=== PATIENT | male | born 1950 | race Caucasian/White ===

== ENCOUNTER 2019-11-21 10:51 | Inpatient (IN) | payer MEDICARE, BC ==
[~2019-11-21] VITALS: Ht 185.4 cm; Wt 128.4 kg
[~2019-11-21 10:51] MED LIST: ALLO100T PO; ASCO500C15 PO; ATOR40TA PO; BUME2TAB7 PO; BUPR-344 PO; CALC-331 PO; CARV-50 PO; CYCL-1 PO; DONE10TA7 PO; FENO150C4 PO; HYDR-3972 PO; LISI10TA4 PO; LORA0.5T PO; MAGN400C PO; MEGA-RED PO; MELA10TA2 PO; METF-436 PO; MULT-1085 PO; PROM50TA3 PO; SPIR25TA PO; TRAM50TA2 PO; VITA150T PO
[2019-11-21] MEDS ORDERED: normal saline 500ml IV soln 1,000 ML IV ONE (12:20)
[2019-11-21 12:27] LABS: BASOPHILS # (AUTO) 0.1 X10'3 (0-0.2); BASOPHILS % (AUTO) 0.9 % (0-1); EOSINOPHILS # (AUTO) 0.3 X10'3 (0-0.9); EOSINOPHILS % (AUTO) 3.9 % (0-6); HEMATOCRIT 28.5 % (42.0-52.0); HEMOGLOBIN 9.8 g/dl (14.0-17.9); LYMPHOCYTES # (AUTO) 1.2 X10'3 (1.1-4.8); LYMPHOCYTES % (AUTO) 18.7 % (21-51); MEAN CORPUSCULAR HEMOGLOBIN 33.5 PG (27.0-31.0); MEAN CORPUSCULAR HGB CONC 34.3 g/dL (33.0-36.5); MEAN CORPUSCULAR VOLUME 97.7 FL (78-98); MEAN PLATELET VOLUME 7.3 FL (7.4-10.4); MONOCYTES # (AUTO) 0.6 X10'3 (0-0.9); MONOCYTES % (AUTO) 8.7 % (2-12); NEUTROPHILS # (AUTO) 4.4 X10'3 (1.8-7.7); NEUTROPHILS % (AUTO) 67.8 % (42-75); PLATELET COUNT 219 X10'3 (140-440); RED BLOOD COUNT 2.92 X10'6 (4.70-6.10); RED CELL DISTRIBUTION WIDTH 13.6 % (11.5-14.5); WHITE BLOOD COUNT 6.5 X10'3 (4.5-11.0)
[2019-11-21 12:43] LABS: ALANINE AMINOTRANSFERASE 35 U/L (12-78); ALBUMIN 3.7 G/DL (3.4-5.0); ALBUMIN/GLOBULIN RATIO 1.1 (1.1-1.5); ALKALINE PHOSPHATASE 46 IU/L (46-116); ANION GAP 12 (8-16); ASPARTATE AMINO TRANSFERASE 34 U/L (10-37); BILIRUBIN,TOTAL 0.4 MG/DL (0.1-1.0); BLOOD UREA NITROGEN 62 MG/DL (7-18); BUN/CREATININE RATIO 24.1 (5.4-32.0); CHLORIDE 100 MMOL/L (99-107); CREATININE 2.57 MG/DL (0.60-1.10); GLUCOSE 133 MG/DL (70-104); POTASSIUM 4.9 MMOL/L (3.5-5.1); SODIUM 135 MMOL/L (135-145); TOTAL CARBON DIOXIDE 22.9 MMOL/L (24-32); TOTAL PROTEIN 7.2 G/DL (6.4-8.2); eGFR 25 ML/MIN
[2019-11-21 13:01] LABS: PLATELET ESTIMATE NORMAL; TOTAL CELLS COUNTED 100
[2019-11-21] MEDS ORDERED: normal saline 1000ML IV soln IVB ONE (13:10)
[2019-11-21] MEDS ORDERED: LORazepam 0.5 MG tablet PO STA (13:41)
[2019-11-21 13:58] LABS: PARTIAL THROMBOPLASTIN TIME 29 SECONDS (22-32)
--- NOTE | 2019-11-21 14:16 | NUR ---
Patient sat upright to urinate and blood pressure improved significantly. Odalys Shepherd notified.
[2019-11-21 14:22] LABS: CLARITY,URINE CLEAR (Clear); COLOR,URINE YELLOW (Yellow); GLUCOSE, URINE NEGATIVE (Neg); KETONES,URINE NEGATIVE (Neg); LEUKOCYTE ESTERASE ,URINE NEGATIVE (Neg); NITRITES, URINE NEGATIVE (Neg); OCCULT BLOOD,URINE NEGATIVE (Neg); PROTEIN,URINE NEGATIVE (Neg); UROBILINOGEN,URINE 0.2 E.U/dL (0.2-1.0)
[2019-11-21 14:24] LABS: UA COLLECTION TYPE CLN CATCH MIDSTREAM
[2019-11-21] MEDS ORDERED: vancomycin/NS 1 GM ADD-VANTAGE 250 ML IV ONE (14:40)
[2019-11-21] MEDS ORDERED: magnesium hydroxide 30ml (MOM) UD suspension PO PRN (16:25)
[2019-11-21] MEDS ORDERED: mag hydrox/Alum hydrox/simeth 30ml oral suspension PO PRN (16:25)
[2019-11-21] MEDS ORDERED: ondansetron/PF 4mg/2ml inj IV PRN (16:25)
[2019-11-21] MEDS ORDERED: acetaminophen 325mg tablet PO PRN (16:25)
[2019-11-21] MEDS: HYDROcodone/acetaminophen 5mg/325mg tablet PO PRN (17:29)
[2019-11-21] MEDS ORDERED: levoFLOXACIN 750MG TABLET PO SCH (17:55)
[2019-11-21] MEDS: normal saline 1000ml 1,000 ML IV SCH (18:13)
[2019-11-21 19:05] VITALS: BP 122/75
--- NOTE | 2019-11-21 19:05 | NUR ---
PATIENT ADMITTED TO ROOM 347B FROM ER FOR CELLULITIS OF THE RIGHT FOOT. PLACED COMFORTABLE IN BED. VITAL SIGNS TAKEN AND RECORDED.
[2019-11-21] MEDS: morphine 2 MG/ML inj. syringe IV PRN (21:09)
[2019-11-21] MEDS: heparin, porcine 5000 units/ml vial SQ SCH (21:12)
[2019-11-22] VITALS: BP 112/61
[2019-11-22] MEDS: HYDROcodone/acetaminophen 5mg/325mg tablet PO PRN ×2 (00:18→07:42)
[2019-11-22] MEDS: normal saline 1000ml 1,000 ML IV SCH ×3 (03:40→22:25)
[2019-11-22 05:27] LABS: BASOPHILS % (AUTO) 0.9 % (0-1); EOSINOPHILS # (AUTO) 0.2 X10'3 (0-0.9); EOSINOPHILS % (AUTO) 5.2 % (0-6); HEMATOCRIT 26.5 % (42.0-52.0); HEMOGLOBIN 9.2 g/dl (14.0-17.9); LYMPHOCYTES % (AUTO) 22.5 % (21-51); MEAN CORPUSCULAR HEMOGLOBIN 33.7 PG (27.0-31.0); MEAN CORPUSCULAR HGB CONC 34.6 g/dL (33.0-36.5); MEAN CORPUSCULAR VOLUME 97.4 FL (78-98); MEAN PLATELET VOLUME 7.3 FL (7.4-10.4); MONOCYTES # (AUTO) 0.3 X10'3 (0-0.9); MONOCYTES % (AUTO) 7.6 % (2-12); NEUTROPHILS # (AUTO) 2.9 X10'3 (1.8-7.7); NEUTROPHILS % (AUTO) 63.8 % (42-75); PLATELET COUNT 197 X10'3 (140-440); RED BLOOD COUNT 2.73 X10'6 (4.70-6.10); RED CELL DISTRIBUTION WIDTH 13.3 % (11.5-14.5); WHITE BLOOD COUNT 4.6 X10'3 (4.5-11.0)
[2019-11-22 05:42] LABS: ALBUMIN 3.2 G/DL (3.4-5.0); ANION GAP 11 (8-16); BLOOD UREA NITROGEN 42 MG/DL (7-18); BUN/CREATININE RATIO 32.6 (5.4-32.0); CALCIUM 8.5 MG/DL (8.5-10.1); CHLORIDE 105 MMOL/L (99-107); CREATININE 1.29 MG/DL (0.60-1.10); GLUCOSE 116 MG/DL (70-104); POTASSIUM 4.3 MMOL/L (3.5-5.1); SODIUM 138 MMOL/L (135-145); TOTAL CARBON DIOXIDE 22.2 MMOL/L (24-32); eGFR 56 ML/MIN
--- NOTE | 2019-11-22 06:20 | NUR ---
Problems reprioritized. Patient report given, questions answered & plan of care reviewed with JEAN CLAUDE MARTINEZ.
--- NOTE | 2019-11-22 06:26 | NUR ---
Patient in room BAO 347B. I have received report from JOHN LOPEZ RN and had the opportunity to ask questions and assume patient care.
--- NOTE | 2019-11-22 07:00 | NUR ---
WALLET, KEYS AND SOME MEDICATIONS SENT HOME WITH , CAME TO RETRIEVE. NOTED IN BELONGINGS PART OF CHART
[2019-11-22] MEDS: heparin, porcine 5000 units/ml vial SQ SCH ×2 (07:40→19:48)
[2019-11-22 08:13] VITALS: BP 113/62
[2019-11-22] MEDS ORDERED: VANCOmycin 1250MG/NS 250ml Bag 250 ML IV SCH (08:16)
[2019-11-22] MEDS: CefTRIAXone 2gm/D5W 50ml 50 ML IV SCH (10:42)
[2019-11-22] MEDS ORDERED: HYDROcodone/acetaminophen 10/325mg tab PO PRN (10:50)
[2019-11-22] MEDS ORDERED: Melatonin 3mg tablet PO PRN (10:50)
[2019-11-22] MEDS ORDERED: LORazepam 0.5 MG tablet PO PRN (10:50)
[2019-11-22 11:31] VITALS: BP 137/77
--- NOTE | 2019-11-22 11:48 | NUR ---
Problems reprioritized. Patient report given, questions answered & plan of care reviewed with MICHELLE NICHOLAS.
[2019-11-22] MEDS: metroNIDAZOLE 500mg tablet PO SCH ×2 (12:21→21:47)
--- NOTE | 2019-11-22 12:30 | NUR ---
Patient in room BAO 347. I have received report from Therese MARTINEZ and had the opportunity to ask questions and assume patient care.
--- NOTE | 2019-11-22 12:35 | NUR ---
I have reviewed and agree with the 0800 assessment of Therese MARTINEZ
--- NOTE | 2019-11-22 12:37 | NUR ---
DM Consult: A1C 7.4 DX R foot cellulitis possible osteomyelitis per EMR this admit. Hx dementia per EMR; not appropriate for DM ed at this time. PO 100% avg carb controlled meals; double eggs WB and double proteins BIDLD added given pt wt and protein needs. Receiving MVI and vitamin B/vitamin C this admit. Will continue to monitor. Addendum: 11/22/19 at [address] Ordo[address]ez RD Amended: Links added.
[2019-11-22] MEDS ORDERED: VANCOMYCIN 1,500MG inj. 1,500 MG in normal saline 500ml IV soln 300 ML IV SCH (15:00)
[2019-11-22] MEDS ORDERED: HYDROcodone/acetaminophen 5mg/325mg tablet PO PRN (16:40)
--- NOTE | 2019-11-22 18:30 | NUR ---
Patient in room BAO 347. I have received report from Kayce MARTINEZ and had the opportunity to ask questions and assume patient care.
--- NOTE | 2019-11-22 18:37 | NUR ---
Problems reprioritized. Patient report given, questions answered & plan of care reviewed with Stephie Falk RN.
[2019-11-22] MEDS: HYDROcodone/acetaminophen 10/325mg tab PO PRN (18:51)
[2019-11-22] MEDS: carVEDilol 12.5mg tablet PO SCH (19:44)
[2019-11-22 20:00] VITALS: BP 138/83
--- NOTE | 2019-11-22 23:50 | NUR ---
Problems reprioritized. Patient report given, questions answered & plan of care reviewed with Zhou MARTINEZ.
[2019-11-23] VITALS: BP 116/51
--- NOTE | 2019-11-23 | NUR ---
Patient in room ABO 347. I have received report from ALPESH MARTINEZ and had the opportunity to ask questions and assume patient care.
[2019-11-23] MEDS: HYDROcodone/acetaminophen 10/325mg tab PO PRN ×2 (01:21→10:37)
[2019-11-23] MEDS: normal saline 1000ml 1,000 ML IV SCH (01:22)
[2019-11-23] MEDS: morphine 2 MG/ML inj. syringe IV PRN (04:42)
[2019-11-23 04:54] LABS: HEMOGLOBIN 9.9 g/dl (14.0-17.9); RED CELL DISTRIBUTION WIDTH 13.3 % (11.5-14.5)
[2019-11-23 04:57] LABS: BASOPHILS # (AUTO) 0.1 X10'3 (0-0.2); EOSINOPHILS # (AUTO) 0.2 X10'3 (0-0.9); EOSINOPHILS % (AUTO) 3.8 % (0-6); HEMATOCRIT 28.6 % (42.0-52.0); LYMPHOCYTES # (AUTO) 1.1 X10'3 (1.1-4.8); LYMPHOCYTES % (AUTO) 19.3 % (21-51); MEAN CORPUSCULAR HEMOGLOBIN 33.7 PG (27.0-31.0); MEAN CORPUSCULAR HGB CONC 34.7 g/dL (33.0-36.5); MEAN CORPUSCULAR VOLUME 97.2 FL (78-98); MEAN PLATELET VOLUME 7.6 FL (7.4-10.4); MONOCYTES # (AUTO) 0.4 X10'3 (0-0.9); NEUTROPHILS % (AUTO) 68.9 % (42-75); PLATELET COUNT 218 X10'3 (140-440); RED BLOOD COUNT 2.94 X10'6 (4.70-6.10); WHITE BLOOD COUNT 5.7 X10'3 (4.5-11.0)
[2019-11-23 05:11] LABS: ALBUMIN 3.5 G/DL (3.4-5.0); ANION GAP 9 (8-16); BLOOD UREA NITROGEN 22 MG/DL (7-18); BUN/CREATININE RATIO 23.2 (5.4-32.0); CALCIUM 9.1 MG/DL (8.5-10.1); CHLORIDE 104 MMOL/L (99-107); CREATININE 0.95 MG/DL (0.60-1.10); GLUCOSE 141 MG/DL (70-104); POTASSIUM 4.1 MMOL/L (3.5-5.1); SODIUM 138 MMOL/L (135-145); TOTAL CARBON DIOXIDE 24.8 MMOL/L (24-32); eGFR 79 ML/MIN
--- NOTE | 2019-11-23 06:30 | NUR ---
Problems reprioritized. Patient report given, questions answered & plan of care reviewed with JEAN CLAUDE MARTINEZ.
--- NOTE | 2019-11-23 06:32 | NUR ---
Patient in room BAO 347B. I have received report from JOHN LOPEZ RN and had the opportunity to ask questions and assume patient care.
[2019-11-23 07:00] VITALS: BP 121/56
[2019-11-23] MEDS: CefTRIAXone 2gm/D5W 50ml 50 ML IV SCH (07:49)
[2019-11-23] MEDS: metroNIDAZOLE 500mg tablet PO SCH ×2 (07:50→13:00)
[2019-11-23] MEDS: carVEDilol 12.5mg tablet PO SCH (07:50)
[2019-11-23] MEDS ORDERED: allopurinol 100mg tablet PO SCH (08:00)
[2019-11-23] MEDS ORDERED: atorvastatin 20mg tablet PO SCH (08:00)
[2019-11-23] MEDS ORDERED: lisinopril 10 MG tablet PO SCH (08:00)
[2019-11-23] MEDS ORDERED: magnesium oxide 400mg tablet PO SCH (08:00)
[2019-11-23] MEDS ORDERED: fenofibrate 145mg tablet PO SCH (08:00)
[2019-11-23] MEDS ORDERED: MEGA RED PO SCH (08:00)
[2019-11-23] MEDS ORDERED: buPROPion SR 150mg tablet PO SCH (08:00)
[2019-11-23] MEDS ORDERED: multivitamins, therapeutics tablet PO SCH (08:00)
[2019-11-23] MEDS ORDERED: spironolactone 25 MG tablet PO SCH (08:00)
[2019-11-23] MEDS ORDERED: calcium carbonate 500mg tablet PO SCH (08:00)
[2019-11-23] MEDS ORDERED: vitamin B comp w/Vit. C tab 1 TAB TABLET PO SCH (08:00)
--- NOTE | 2019-11-23 09:47 | NUR ---
[facility] LINE INFORMATION: REF: [id number] LOT: [id number] EXP:
[2019-11-23] MEDS: heparin, porcine 5000 units/ml vial SQ SCH (10:38)
[2019-11-23 11:00] VITALS: BP 139/65
[2019-11-23] MEDS ORDERED: METR-159 PO (11:09)
[2019-11-23] MEDS ORDERED: CEFT2VIA13 IV (11:09)
--- NOTE | 2019-11-23 13:20 | NUR ---
PATIENT STABLE AND APPROPRIATE FOR DISCHARGE, WOUND PICTURES TAKEN, IV TAKEN OUT, EDUCATION GIVEN, ALL BELONGINGS SENT WITH PATIENT, PATIENT TAKEN BY WHEEL CHAIR TO LOBBY TO AN AWAITING CAR WHERE WILL TAKE PATIENT HOME
[2019-11-23] MEDS ORDERED: VANCOMYCIN LEVEL IV ONE (19:30)
== END 2019-11-23 13:20 | disposition home IV services (08) | DRG 602 ==
LOC: ER 10:52 → ED HOLD 16:25 → SUR 3N 19:01
PROVIDERS: ADMIT Family Medicine; ATTEND Family Medicine
PROC: 02HV33Z Insertion of Infusion Device into Superior Vena Cava, Percutaneous Approach (ICD-10-PCS; principal; 2019-11-23)
PROC: B548ZZA Ultrasonography of Superior Vena Cava, Guidance (ICD-10-PCS; 2019-11-23)
DX: L03.031 Cellulitis of right toe (principal); N17.0 Acute kidney failure with tubular necrosis; M86.8X7 Other osteomyelitis, ankle and foot; E11.69 Type 2 diabetes mellitus with other specified complication; F32.9 Major depressive disorder, single episode, unspecified; I10 Essential (primary) hypertension; E78.5 Hyperlipidemia, unspecified; F03.90 Unspecified dementia, unspecified severity, without behavioral disturbance, psychotic disturbance, mood disturbance, and anxiety; Z88.5 Allergy status to narcotic agent
CPT/HCPCS: 36415; 36573; 71045; 73630; 73718; 76937; 80048; 80053; 81003; 82948; 83036; 83605; 83880; 84145; 84484; 85007; 85025; 85610; 85730; 87040; 87081; 93005; 96361; 96365; 99285; G0378; J0696; J1644; J2270; J3370; J3490; J7030; J7040

== ENCOUNTER 2019-11-24 08:15 | Day surgery (SDC) | payer MEDICARE, BC ==
[~2019-11-24 08:15] MED LIST changes: +CEFT2VIA13 IV; -CYCL-1 PO; -DONE10TA7 PO; +METR-159 PO; -PROM50TA3 PO; -TRAM50TA2 PO
[2019-11-24] MEDS ORDERED: LIDOcaine 2% 5ml jelly ONE (09:31)
== END 2019-11-24 10:29 | disposition home or self-care (01) ==
LOC: WOUND CARE 08:15
PROVIDERS: ATTEND Nurse Practitioner
DX: E11.621 Type 2 diabetes mellitus with foot ulcer (principal); L97.512 Non-pressure chronic ulcer of other part of right foot with fat layer exposed; E11.319 Type 2 diabetes mellitus with unspecified diabetic retinopathy without macular edema; E11.69 Type 2 diabetes mellitus with other specified complication; M86.8X7 Other osteomyelitis, ankle and foot; I11.0 Hypertensive heart disease with heart failure; I50.9 Heart failure, unspecified; E78.5 Hyperlipidemia, unspecified; F32.9 Major depressive disorder, single episode, unspecified; F03.90 Unspecified dementia, unspecified severity, without behavioral disturbance, psychotic disturbance, mood disturbance, and anxiety; Z88.5 Allergy status to narcotic agent
CPT/HCPCS: 36416; 82948; 97597

== ENCOUNTER → 2019-12-02 | Day surgery (SDC) | payer MEDICARE, BC ==
[~2019-12-02] MED LIST changes: +LIDOcaine 2% 5ml jelly ONE
== END | disposition home or self-care (01) ==
LOC: WOUND CARE 09:12
PROVIDERS: ATTEND Nurse Practitioner
DX: E11.621 Type 2 diabetes mellitus with foot ulcer (principal); L97.512 Non-pressure chronic ulcer of other part of right foot with fat layer exposed; L97.528 Non-pressure chronic ulcer of other part of left foot with other specified severity; E11.319 Type 2 diabetes mellitus with unspecified diabetic retinopathy without macular edema; E11.69 Type 2 diabetes mellitus with other specified complication; E66.9 Obesity, unspecified; M86.8X7 Other osteomyelitis, ankle and foot; I11.0 Hypertensive heart disease with heart failure; I50.9 Heart failure, unspecified; E78.5 Hyperlipidemia, unspecified; F32.9 Major depressive disorder, single episode, unspecified; F03.90 Unspecified dementia, unspecified severity, without behavioral disturbance, psychotic disturbance, mood disturbance, and anxiety; Z68.36 Body mass index [BMI] 36.0-36.9, adult; Z87.891 Personal history of nicotine dependence
CPT/HCPCS: 36416; 82948; 97597

== ENCOUNTER 2019-12-09 13:50 | Day surgery (SDC) | payer MEDICARE, BC ==
[~2019-12-09 13:50] MED LIST changes: -LIDOcaine 2% 5ml jelly ONE
[2019-12-09] MEDS ORDERED: LIDOcaine 2% 5ml jelly ONE (14:05)
== END 2019-12-09 14:50 | disposition home or self-care (01) ==
LOC: WOUND CARE 13:50
PROVIDERS: ATTEND Nurse Practitioner
DX: E11.621 Type 2 diabetes mellitus with foot ulcer (principal); L97.512 Non-pressure chronic ulcer of other part of right foot with fat layer exposed; L97.528 Non-pressure chronic ulcer of other part of left foot with other specified severity; E11.319 Type 2 diabetes mellitus with unspecified diabetic retinopathy without macular edema; E11.69 Type 2 diabetes mellitus with other specified complication; E66.9 Obesity, unspecified; M86.8X7 Other osteomyelitis, ankle and foot; I11.0 Hypertensive heart disease with heart failure; I50.9 Heart failure, unspecified; E78.5 Hyperlipidemia, unspecified; F32.9 Major depressive disorder, single episode, unspecified; F03.90 Unspecified dementia, unspecified severity, without behavioral disturbance, psychotic disturbance, mood disturbance, and anxiety; Z68.36 Body mass index [BMI] 36.0-36.9, adult; Z87.891 Personal history of nicotine dependence
CPT/HCPCS: 36416; 82948; 97597

== ENCOUNTER 2019-12-16 09:48 | Day surgery (SDC) | payer MEDICARE, BC ==
[2019-12-16] MEDS ORDERED: LIDOcaine 2% 5ml jelly ONE (10:03)
== END 2019-12-16 11:15 | disposition home or self-care (01) ==
LOC: WOUND CARE 09:48
PROVIDERS: ATTEND Nurse Practitioner
DX: E11.621 Type 2 diabetes mellitus with foot ulcer (principal); L97.512 Non-pressure chronic ulcer of other part of right foot with fat layer exposed; L97.521 Non-pressure chronic ulcer of other part of left foot limited to breakdown of skin; E11.319 Type 2 diabetes mellitus with unspecified diabetic retinopathy without macular edema; E11.69 Type 2 diabetes mellitus with other specified complication; E66.9 Obesity, unspecified; M86.8X7 Other osteomyelitis, ankle and foot; I11.0 Hypertensive heart disease with heart failure; I50.9 Heart failure, unspecified; E78.5 Hyperlipidemia, unspecified; F32.9 Major depressive disorder, single episode, unspecified; F03.90 Unspecified dementia, unspecified severity, without behavioral disturbance, psychotic disturbance, mood disturbance, and anxiety; Z68.36 Body mass index [BMI] 36.0-36.9, adult; Z87.891 Personal history of nicotine dependence
CPT/HCPCS: 36416; 82948; G0463

== ENCOUNTER 2019-12-23 13:45 | Day surgery (SDC) | payer MEDICARE, BC ==
[~2019-12-23 13:45] MED LIST changes: -ASCO500C15 PO; +ASCO500C18 PO
== END 2019-12-23 14:34 | disposition home or self-care (01) ==
LOC: WOUND CARE 13:45
PROVIDERS: ATTEND Nurse Practitioner
DX: E11.621 Type 2 diabetes mellitus with foot ulcer (principal); L97.512 Non-pressure chronic ulcer of other part of right foot with fat layer exposed; E11.319 Type 2 diabetes mellitus with unspecified diabetic retinopathy without macular edema; E11.69 Type 2 diabetes mellitus with other specified complication; M86.8X7 Other osteomyelitis, ankle and foot; E66.9 Obesity, unspecified; I11.0 Hypertensive heart disease with heart failure; I50.9 Heart failure, unspecified; E78.5 Hyperlipidemia, unspecified; F32.9 Major depressive disorder, single episode, unspecified; F03.90 Unspecified dementia, unspecified severity, without behavioral disturbance, psychotic disturbance, mood disturbance, and anxiety; Z68.36 Body mass index [BMI] 36.0-36.9, adult; Z87.891 Personal history of nicotine dependence
CPT/HCPCS: 36416; 82948; 97597

== ENCOUNTER 2019-12-30 08:13 | Day surgery (SDC) | payer MEDICARE, BC ==
[2019-12-30] MEDS ORDERED: LIDOcaine 2% 5ml jelly ONE (09:42)
== END 2019-12-30 10:29 | disposition home or self-care (01) ==
LOC: WOUND CARE 08:13
PROVIDERS: ATTEND Nurse Practitioner
DX: E11.621 Type 2 diabetes mellitus with foot ulcer (principal); L97.512 Non-pressure chronic ulcer of other part of right foot with fat layer exposed; E11.319 Type 2 diabetes mellitus with unspecified diabetic retinopathy without macular edema; E11.65 Type 2 diabetes mellitus with hyperglycemia; E11.40 Type 2 diabetes mellitus with diabetic neuropathy, unspecified; E11.69 Type 2 diabetes mellitus with other specified complication; M86.8X7 Other osteomyelitis, ankle and foot; E66.9 Obesity, unspecified; I11.0 Hypertensive heart disease with heart failure; I50.9 Heart failure, unspecified; E78.5 Hyperlipidemia, unspecified; F32.9 Major depressive disorder, single episode, unspecified; F03.90 Unspecified dementia, unspecified severity, without behavioral disturbance, psychotic disturbance, mood disturbance, and anxiety; Z68.36 Body mass index [BMI] 36.0-36.9, adult; Z87.891 Personal history of nicotine dependence
CPT/HCPCS: 97597

== ENCOUNTER 2020-01-06 09:43 | Outpatient (CLI) | payer MEDICARE, BC ==
[~2020-01-06 09:43] MED LIST changes: -CEFT2VIA13 IV; -METR-159 PO
[2020-01-06] MEDS ORDERED: LIDOcaine 2% 5ml jelly ONE (10:03)
[2020-01-06] MEDS ORDERED: hydrocortisone 1% cream 28gm TP ONE (14:32)
== END 2020-01-06 10:35 | disposition home or self-care (01) ==
LOC: WOUND CARE 09:43
PROVIDERS: ATTEND Nurse Practitioner
DX: E11.621 Type 2 diabetes mellitus with foot ulcer (principal); L97.512 Non-pressure chronic ulcer of other part of right foot with fat layer exposed; E11.319 Type 2 diabetes mellitus with unspecified diabetic retinopathy without macular edema; E11.69 Type 2 diabetes mellitus with other specified complication; M86.8X7 Other osteomyelitis, ankle and foot; E66.9 Obesity, unspecified; I11.0 Hypertensive heart disease with heart failure; I50.9 Heart failure, unspecified; E78.5 Hyperlipidemia, unspecified; F32.9 Major depressive disorder, single episode, unspecified; F03.90 Unspecified dementia, unspecified severity, without behavioral disturbance, psychotic disturbance, mood disturbance, and anxiety; Z68.36 Body mass index [BMI] 36.0-36.9, adult; Z87.891 Personal history of nicotine dependence
CPT/HCPCS: 97597

== ENCOUNTER 2020-01-13 09:46 | Outpatient (CLI) | payer MEDICARE, BC | END 2020-01-13 23:59 | disposition home or self-care (01) | LOC: WOUND CARE 09:46 | PROVIDERS: ATTEND Nurse Practitioner | DX: E11.621 Type 2 diabetes mellitus with foot ulcer (principal); L97.512 Non-pressure chronic ulcer of other part of right foot with fat layer exposed; E11.319 Type 2 diabetes mellitus with unspecified diabetic retinopathy without macular edema; E11.69 Type 2 diabetes mellitus with other specified complication; M86.8X7 Other osteomyelitis, ankle and foot; E66.9 Obesity, unspecified; I11.0 Hypertensive heart disease with heart failure; I50.9 Heart failure, unspecified; E78.5 Hyperlipidemia, unspecified; F32.9 Major depressive disorder, single episode, unspecified; F03.90 Unspecified dementia, unspecified severity, without behavioral disturbance, psychotic disturbance, mood disturbance, and anxiety; Z68.36 Body mass index [BMI] 36.0-36.9, adult; Z87.891 Personal history of nicotine dependence | CPT/HCPCS: 11042; 36416; 82948; 97597 ==

== ENCOUNTER 2020-01-20 13:15 | Outpatient (CLI) | payer MEDICARE, BC ==
[2020-01-20] MEDS ORDERED: LIDOcaine 2% 5ml jelly ONE (13:47)
== END 2020-01-20 23:59 | disposition home or self-care (01) ==
LOC: WOUND CARE 13:15
PROVIDERS: ATTEND Nurse Practitioner
DX: E11.621 Type 2 diabetes mellitus with foot ulcer (principal); L97.512 Non-pressure chronic ulcer of other part of right foot with fat layer exposed; L97.521 Non-pressure chronic ulcer of other part of left foot limited to breakdown of skin; E11.319 Type 2 diabetes mellitus with unspecified diabetic retinopathy without macular edema; M86.8X7 Other osteomyelitis, ankle and foot; E66.9 Obesity, unspecified; I11.0 Hypertensive heart disease with heart failure; I50.9 Heart failure, unspecified; E78.5 Hyperlipidemia, unspecified; F32.9 Major depressive disorder, single episode, unspecified; Z68.36 Body mass index [BMI] 36.0-36.9, adult; Z87.891 Personal history of nicotine dependence
CPT/HCPCS: 36416; 82948; 97597

== ENCOUNTER 2020-01-27 13:06 | Outpatient (CLI) | payer MEDICARE, BC ==
[2020-01-27] MEDS ORDERED: LIDOcaine 2% 5ml jelly ONE (13:24)
== END 2020-01-27 23:59 | disposition home or self-care (01) ==
LOC: WOUND CARE 13:06
PROVIDERS: ATTEND Nurse Practitioner
DX: E11.621 Type 2 diabetes mellitus with foot ulcer (principal); L97.512 Non-pressure chronic ulcer of other part of right foot with fat layer exposed; E11.319 Type 2 diabetes mellitus with unspecified diabetic retinopathy without macular edema; E11.65 Type 2 diabetes mellitus with hyperglycemia; E11.69 Type 2 diabetes mellitus with other specified complication; M86.8X7 Other osteomyelitis, ankle and foot; E11.40 Type 2 diabetes mellitus with diabetic neuropathy, unspecified; M10.9 Gout, unspecified; E66.9 Obesity, unspecified; I11.0 Hypertensive heart disease with heart failure; I50.9 Heart failure, unspecified; E78.5 Hyperlipidemia, unspecified; M19.90 Unspecified osteoarthritis, unspecified site; F32.9 Major depressive disorder, single episode, unspecified; F41.9 Anxiety disorder, unspecified; F03.90 Unspecified dementia, unspecified severity, without behavioral disturbance, psychotic disturbance, mood disturbance, and anxiety; F40.240 Claustrophobia; Z68.36 Body mass index [BMI] 36.0-36.9, adult; Z87.891 Personal history of nicotine dependence
CPT/HCPCS: 97597

== ENCOUNTER 2020-02-03 14:00 | Outpatient (CLI) | payer MEDICARE, BC ==
[2020-02-03] MEDS ORDERED: LIDOcaine 2% 5ml jelly ONE (14:38)
== END 2020-02-03 23:59 | disposition home or self-care (01) ==
LOC: WOUND CARE 14:00
PROVIDERS: ATTEND Nurse Practitioner
DX: E11.621 Type 2 diabetes mellitus with foot ulcer (principal); L97.512 Non-pressure chronic ulcer of other part of right foot with fat layer exposed; E11.319 Type 2 diabetes mellitus with unspecified diabetic retinopathy without macular edema; E11.65 Type 2 diabetes mellitus with hyperglycemia; E11.69 Type 2 diabetes mellitus with other specified complication; M86.8X7 Other osteomyelitis, ankle and foot; E11.40 Type 2 diabetes mellitus with diabetic neuropathy, unspecified; M10.9 Gout, unspecified; E66.9 Obesity, unspecified; I11.0 Hypertensive heart disease with heart failure; I50.9 Heart failure, unspecified; E78.5 Hyperlipidemia, unspecified; M19.90 Unspecified osteoarthritis, unspecified site; R41.3 Other amnesia; F32.9 Major depressive disorder, single episode, unspecified; F41.9 Anxiety disorder, unspecified; F03.90 Unspecified dementia, unspecified severity, without behavioral disturbance, psychotic disturbance, mood disturbance, and anxiety; F40.240 Claustrophobia; Z68.36 Body mass index [BMI] 36.0-36.9, adult; Z87.891 Personal history of nicotine dependence
CPT/HCPCS: 82948; G0463

== ENCOUNTER 2020-02-10 14:00 | Outpatient (CLI) | payer MEDICARE, BC ==
[2020-02-10] MEDS ORDERED: LIDOcaine 2% 5ml jelly ONE (14:55)
== END 2020-02-10 23:59 | disposition home or self-care (01) ==
LOC: EDSTATUS 14:00 → WOUND CARE 14:00
PROVIDERS: ATTEND Nurse Practitioner
DX: E11.621 Type 2 diabetes mellitus with foot ulcer (principal); L97.512 Non-pressure chronic ulcer of other part of right foot with fat layer exposed; E11.319 Type 2 diabetes mellitus with unspecified diabetic retinopathy without macular edema; E11.65 Type 2 diabetes mellitus with hyperglycemia; E11.69 Type 2 diabetes mellitus with other specified complication; M86.8X7 Other osteomyelitis, ankle and foot; E11.40 Type 2 diabetes mellitus with diabetic neuropathy, unspecified; M10.9 Gout, unspecified; E66.9 Obesity, unspecified; I11.0 Hypertensive heart disease with heart failure; I50.9 Heart failure, unspecified; E78.5 Hyperlipidemia, unspecified; M19.90 Unspecified osteoarthritis, unspecified site; F32.9 Major depressive disorder, single episode, unspecified; F41.9 Anxiety disorder, unspecified; F03.90 Unspecified dementia, unspecified severity, without behavioral disturbance, psychotic disturbance, mood disturbance, and anxiety; F40.240 Claustrophobia; Z68.36 Body mass index [BMI] 36.0-36.9, adult; Z87.891 Personal history of nicotine dependence
CPT/HCPCS: 36416; 82948; 97597

== ENCOUNTER 2020-02-15 14:09 | Outpatient (CLI) | payer MEDICARE, BC ==
[2020-02-15] MEDS ORDERED: LIDOcaine 2% 5ml jelly ONE (14:30)
== END 2020-02-15 23:59 | disposition home or self-care (01) ==
LOC: WOUND CARE 14:09
PROVIDERS: ATTEND Nurse Practitioner
DX: E11.621 Type 2 diabetes mellitus with foot ulcer (principal); L97.512 Non-pressure chronic ulcer of other part of right foot with fat layer exposed; E11.319 Type 2 diabetes mellitus with unspecified diabetic retinopathy without macular edema; E11.65 Type 2 diabetes mellitus with hyperglycemia; E11.69 Type 2 diabetes mellitus with other specified complication; M86.8X7 Other osteomyelitis, ankle and foot; E11.40 Type 2 diabetes mellitus with diabetic neuropathy, unspecified; M10.9 Gout, unspecified; E66.9 Obesity, unspecified; I11.0 Hypertensive heart disease with heart failure; I50.9 Heart failure, unspecified; E78.5 Hyperlipidemia, unspecified; M19.90 Unspecified osteoarthritis, unspecified site; F32.9 Major depressive disorder, single episode, unspecified; F41.9 Anxiety disorder, unspecified; F03.90 Unspecified dementia, unspecified severity, without behavioral disturbance, psychotic disturbance, mood disturbance, and anxiety; F40.240 Claustrophobia; Z68.36 Body mass index [BMI] 36.0-36.9, adult; Z87.891 Personal history of nicotine dependence
CPT/HCPCS: 36416; 82948; 97597

== ENCOUNTER 2020-02-23 13:38 | Outpatient (CLI) | payer MEDICARE, BC ==
[~2020-02-23 13:38] MED LIST changes: +LIDOcaine 2% 5ml jelly ONE
[2020-02-23] MEDS ORDERED: LIDOcaine 2% 5ml jelly ONE (14:04)
== END 2020-02-23 23:59 | disposition home or self-care (01) ==
LOC: WOUND CARE 13:38
PROVIDERS: ATTEND Nurse Practitioner
DX: E11.621 Type 2 diabetes mellitus with foot ulcer (principal); L97.512 Non-pressure chronic ulcer of other part of right foot with fat layer exposed; E11.319 Type 2 diabetes mellitus with unspecified diabetic retinopathy without macular edema; E11.65 Type 2 diabetes mellitus with hyperglycemia; E11.69 Type 2 diabetes mellitus with other specified complication; M86.8X7 Other osteomyelitis, ankle and foot; E11.40 Type 2 diabetes mellitus with diabetic neuropathy, unspecified; M10.9 Gout, unspecified; E66.9 Obesity, unspecified; I11.0 Hypertensive heart disease with heart failure; I50.9 Heart failure, unspecified; E78.5 Hyperlipidemia, unspecified; M19.90 Unspecified osteoarthritis, unspecified site; F32.9 Major depressive disorder, single episode, unspecified; F41.9 Anxiety disorder, unspecified; F03.90 Unspecified dementia, unspecified severity, without behavioral disturbance, psychotic disturbance, mood disturbance, and anxiety; F40.240 Claustrophobia; Z68.36 Body mass index [BMI] 36.0-36.9, adult; Z87.891 Personal history of nicotine dependence
CPT/HCPCS: 11042; 97597

== ENCOUNTER 2020-03-01 13:22 | Outpatient (CLI) | payer MEDICARE, BC ==
[~2020-03-01 13:22] MED LIST changes: -LIDOcaine 2% 5ml jelly ONE
[2020-03-01] MEDS ORDERED: LIDOcaine 2% 5ml jelly ONE (13:52)
== END 2020-03-01 23:59 | disposition home or self-care (01) ==
LOC: WOUND CARE 13:22
PROVIDERS: ATTEND Nurse Practitioner
DX: E11.621 Type 2 diabetes mellitus with foot ulcer (principal); L97.512 Non-pressure chronic ulcer of other part of right foot with fat layer exposed; E11.319 Type 2 diabetes mellitus with unspecified diabetic retinopathy without macular edema; E11.65 Type 2 diabetes mellitus with hyperglycemia; E11.69 Type 2 diabetes mellitus with other specified complication; M86.8X7 Other osteomyelitis, ankle and foot; E11.40 Type 2 diabetes mellitus with diabetic neuropathy, unspecified; M10.9 Gout, unspecified; E66.9 Obesity, unspecified; I11.0 Hypertensive heart disease with heart failure; I50.9 Heart failure, unspecified; E78.5 Hyperlipidemia, unspecified; M19.90 Unspecified osteoarthritis, unspecified site; F32.9 Major depressive disorder, single episode, unspecified; F41.9 Anxiety disorder, unspecified; F03.90 Unspecified dementia, unspecified severity, without behavioral disturbance, psychotic disturbance, mood disturbance, and anxiety; F40.240 Claustrophobia; Z68.36 Body mass index [BMI] 36.0-36.9, adult; Z87.891 Personal history of nicotine dependence
CPT/HCPCS: 82948; 97597

== ENCOUNTER 2020-03-08 13:17 | Outpatient (CLI) | payer MEDICARE, BC ==
[2020-03-08] MEDS ORDERED: LIDOcaine 2% 5ml jelly ONE (13:39)
== END 2020-03-08 23:59 | disposition home or self-care (01) ==
LOC: WOUND CARE 13:17
PROVIDERS: ATTEND Nurse Practitioner
DX: E11.621 Type 2 diabetes mellitus with foot ulcer (principal); L97.512 Non-pressure chronic ulcer of other part of right foot with fat layer exposed; E11.319 Type 2 diabetes mellitus with unspecified diabetic retinopathy without macular edema; E11.65 Type 2 diabetes mellitus with hyperglycemia; E11.69 Type 2 diabetes mellitus with other specified complication; M86.8X7 Other osteomyelitis, ankle and foot; E11.40 Type 2 diabetes mellitus with diabetic neuropathy, unspecified; M10.9 Gout, unspecified; E66.9 Obesity, unspecified; I11.0 Hypertensive heart disease with heart failure; I50.9 Heart failure, unspecified; E78.5 Hyperlipidemia, unspecified; R41.3 Other amnesia; M19.90 Unspecified osteoarthritis, unspecified site; F32.9 Major depressive disorder, single episode, unspecified; F41.9 Anxiety disorder, unspecified; F03.90 Unspecified dementia, unspecified severity, without behavioral disturbance, psychotic disturbance, mood disturbance, and anxiety; F40.240 Claustrophobia; Z68.36 Body mass index [BMI] 36.0-36.9, adult; Z87.891 Personal history of nicotine dependence
CPT/HCPCS: 11042; 36416; 82948

== ENCOUNTER 2020-03-15 13:39 | Outpatient (CLI) | payer MEDICARE, BC ==
[2020-03-15] MEDS ORDERED: LIDOcaine 2% 5ml jelly ONE (14:02)
== END 2020-03-15 23:59 | disposition home or self-care (01) ==
LOC: WOUND CARE 13:39
PROVIDERS: ATTEND Nurse Practitioner
DX: E11.621 Type 2 diabetes mellitus with foot ulcer (principal); L97.512 Non-pressure chronic ulcer of other part of right foot with fat layer exposed; E11.319 Type 2 diabetes mellitus with unspecified diabetic retinopathy without macular edema; E11.65 Type 2 diabetes mellitus with hyperglycemia; E11.69 Type 2 diabetes mellitus with other specified complication; M86.8X7 Other osteomyelitis, ankle and foot; E11.40 Type 2 diabetes mellitus with diabetic neuropathy, unspecified; M10.9 Gout, unspecified; E66.9 Obesity, unspecified; I11.0 Hypertensive heart disease with heart failure; I50.9 Heart failure, unspecified; E78.5 Hyperlipidemia, unspecified; R41.3 Other amnesia; M19.90 Unspecified osteoarthritis, unspecified site; F32.9 Major depressive disorder, single episode, unspecified; F41.9 Anxiety disorder, unspecified; F03.90 Unspecified dementia, unspecified severity, without behavioral disturbance, psychotic disturbance, mood disturbance, and anxiety; F40.240 Claustrophobia; Z68.36 Body mass index [BMI] 36.0-36.9, adult; Z87.891 Personal history of nicotine dependence
CPT/HCPCS: 82948; G0463; 29581

== ENCOUNTER → 2020-03-22 | Outpatient (CLI) | payer MEDICARE, BC ==
[~2020-03-22] MED LIST changes: +LIDOcaine 2% 5ml jelly ONE
== END | disposition home or self-care (01) ==
LOC: WOUND CARE 13:23
PROVIDERS: ATTEND Nurse Practitioner Family
DX: E11.621 Type 2 diabetes mellitus with foot ulcer (principal); L97.512 Non-pressure chronic ulcer of other part of right foot with fat layer exposed; E11.319 Type 2 diabetes mellitus with unspecified diabetic retinopathy without macular edema; E11.65 Type 2 diabetes mellitus with hyperglycemia; E11.69 Type 2 diabetes mellitus with other specified complication; M86.8X7 Other osteomyelitis, ankle and foot; E11.40 Type 2 diabetes mellitus with diabetic neuropathy, unspecified; M10.9 Gout, unspecified; E66.9 Obesity, unspecified; I11.0 Hypertensive heart disease with heart failure; I50.9 Heart failure, unspecified; E78.5 Hyperlipidemia, unspecified; R41.3 Other amnesia; M19.90 Unspecified osteoarthritis, unspecified site; F32.9 Major depressive disorder, single episode, unspecified; F41.9 Anxiety disorder, unspecified; F03.90 Unspecified dementia, unspecified severity, without behavioral disturbance, psychotic disturbance, mood disturbance, and anxiety; F40.240 Claustrophobia; Z68.36 Body mass index [BMI] 36.0-36.9, adult; Z87.891 Personal history of nicotine dependence
CPT/HCPCS: 97597

== ENCOUNTER 2020-03-29 12:45 | Outpatient (CLI) | payer MEDICARE, BC ==
[~2020-03-29 12:45] MED LIST changes: -LIDOcaine 2% 5ml jelly ONE
[2020-03-29] MEDS ORDERED: LIDOcaine 2% 5ml jelly ONE (13:09)
== END 2020-03-29 23:59 | disposition home or self-care (01) ==
LOC: WOUND CARE 12:45
PROVIDERS: ATTEND Nurse Practitioner
DX: E11.621 Type 2 diabetes mellitus with foot ulcer (principal); L97.512 Non-pressure chronic ulcer of other part of right foot with fat layer exposed; E11.319 Type 2 diabetes mellitus with unspecified diabetic retinopathy without macular edema; E11.65 Type 2 diabetes mellitus with hyperglycemia; E11.69 Type 2 diabetes mellitus with other specified complication; M86.8X7 Other osteomyelitis, ankle and foot; E11.40 Type 2 diabetes mellitus with diabetic neuropathy, unspecified; M10.9 Gout, unspecified; E66.9 Obesity, unspecified; I11.0 Hypertensive heart disease with heart failure; I50.9 Heart failure, unspecified; E78.5 Hyperlipidemia, unspecified; R41.3 Other amnesia; M19.90 Unspecified osteoarthritis, unspecified site; F32.9 Major depressive disorder, single episode, unspecified; F41.9 Anxiety disorder, unspecified; F03.90 Unspecified dementia, unspecified severity, without behavioral disturbance, psychotic disturbance, mood disturbance, and anxiety; F40.240 Claustrophobia; Z68.36 Body mass index [BMI] 36.0-36.9, adult; Z87.891 Personal history of nicotine dependence
CPT/HCPCS: G0463

== ENCOUNTER 2022-01-07 17:07 | Emergency (ER) | payer MEDICARE, BC ==
[~2022-01-07] VITALS: Ht 185.4 cm; Wt 121.8 kg
[~2022-01-07 17:07] MED LIST changes: +LISI10TA27 PO; -LISI10TA4 PO
[2022-01-07 17:14] VITALS: BP 141/67
[2022-01-07] MEDS ORDERED: PRED20TA PO ×2 (18:43)
[2022-01-07] MEDS ORDERED: predniSONE 20 mg tablet PO ONE (18:45)
== END 2022-01-07 19:09 | disposition home or self-care (01) ==
LOC: ER 17:08
DX: E11.42 Type 2 diabetes mellitus with diabetic polyneuropathy (principal); Z88.8 Allergy status to other drugs, medicaments and biological substances; Z79.899 Other long term (current) drug therapy
CPT/HCPCS: 99281; 99282

== ENCOUNTER 2022-04-25 06:13 | Day surgery (SDC) | payer MEDICARE, BC ==
[2022-04-24 11:33] LABS: BASOPHILS % (AUTO) 0.5 % (0-1); EOSINOPHILS # (AUTO) 0.3 X10'3 (0-0.9); EOSINOPHILS % (AUTO) 4.9 % (0-6); HEMATOCRIT 35.1 % (42.0-52.0); LYMPHOCYTES # (AUTO) 1.3 X10'3 (1.1-4.8); LYMPHOCYTES % (AUTO) 18.7 % (21-51); MEAN CORPUSCULAR HEMOGLOBIN 35.1 PG (27.0-31.0); MEAN CORPUSCULAR HGB CONC 34.1 g/dL (33.0-36.5); MEAN CORPUSCULAR VOLUME 102.9 FL (78-98); MEAN PLATELET VOLUME 8.3 FL (7.4-10.4); MONOCYTES # (AUTO) 0.6 X10'3 (0-0.9); MONOCYTES % (AUTO) 7.9 % (2-12); NEUTROPHILS # (AUTO) 4.8 X10'3 (1.8-7.7); PLATELET COUNT 190 X10'3 (140-440); RED BLOOD COUNT 3.41 X10'6 (4.70-6.10); RED CELL DISTRIBUTION WIDTH 12.3 % (11.5-14.5)
[2022-04-24 11:47] LABS: ALBUMIN 4.2 G/DL (3.4-5.0); ANION GAP 6 (8-16); BLOOD UREA NITROGEN 39 MG/DL (7-18); BUN/CREATININE RATIO 30.2 (5.4-32.0); CALCIUM 9.7 MG/DL (8.5-10.1); CHLORIDE 101 MMOL/L (99-107); CREATININE 1.29 MG/DL (0.60-1.10); GLUCOSE 156 MG/DL (70-104); POTASSIUM 4.9 MMOL/L (3.5-5.1); SODIUM 134 MMOL/L (135-145); TOTAL CARBON DIOXIDE 26.7 MMOL/L (24-32); eGFR 55 ML/MIN
[2022-04-24 11:51] LABS: APTT 25 SECONDS (22-32)
[~2022-04-25] VITALS: Ht 185.4 cm; Wt 130.8 kg
[2022-04-25] VITALS (11 sets, daily range): BP systolic 100–156; BP diastolic 51–88
[2022-04-25] MEDS ORDERED: diphenhydrAMINE 25mg capsule PO PRN (06:35)
[2022-04-25] MEDS ORDERED: LORazepam 0.5 MG tablet PO PRN (06:35)
[2022-04-25] MEDS ORDERED: normal saline 1,000 ML IV SCH (06:35)
[2022-04-25] MEDS ORDERED: SODIUM BICARB 150mEq/D5W 1L 1,000 ML IV ONE (07:10)
[2022-04-25] MEDS ORDERED: TRAZ-251 PO (07:13)
[2022-04-25] MEDS ORDERED: VALA100031 PO (07:13)
[2022-04-25] MEDS ORDERED: ROPI0.5T4 PO (07:13)
[2022-04-25] MEDS ORDERED: [UNRECOGNIZED DRUG - OTHER] (07:13)
[2022-04-25] MEDS ORDERED: tumeric PO (07:14)
[2022-04-25] MEDS ORDERED: [UNRECOGNIZED DRUG - OTHER] (07:15)
[2022-04-25] MEDS ORDERED: ZINC (07:15)
[2022-04-25] MEDS ORDERED: ALPH600C3 PO (07:16)
[2022-04-25] MEDS ORDERED: BENF150C (07:17)
[2022-04-25] MEDS ORDERED: FERR-39 PO (07:18)
[2022-04-25] MEDS ORDERED: CITI500C (07:19)
[2022-04-25] MEDS ORDERED: KRIL1CAP21 PO (07:20)
[2022-04-25] MEDS ORDERED: IBUP-2417 (07:21)
[2022-04-25] MEDS ORDERED: LIDOcaine 1% (10mg/ml) 2ml vial ONE (07:28)
[2022-04-25] MEDS ORDERED: verapamil 2.5 mg/ml inj IV ONE (07:28)
[2022-04-25] MEDS ORDERED: heparin 1,000unit/ml 10ml vial 10 ML ONE (07:28)
[2022-04-25] MEDS ORDERED: fentaNYL/PF 50MCG/1 ML 2ML syringe ONE (07:28)
[2022-04-25] MEDS ORDERED: midazolam 1 mg/ML 2ml injection ONE (07:28)
[2022-04-25] MEDS ORDERED: nitroGLYCERIN-Tridil 50MG/D5W 250 ML IV ONE (07:28)
[2022-04-25] MEDS ORDERED: iohexol 350MG/ML 100ml bottle IV ONE (07:29)
[2022-04-25] MEDS: acetylcysteine 200 MG/ml 4ml vial PO PRN ×2 (07:31→14:33)
[2022-04-25] MEDS ORDERED: iohexol 350 MG/ML 50ML vial IV ONE (08:40)
[2022-04-25] MEDS ORDERED: HYDROcodone/acetaminophen 10/325mg tab PO PRN (09:45)
[2022-04-25] MEDS ORDERED: HYDROcodone/acetaminophen 5mg/325mg tablet PO PRN (09:45)
--- NOTE | 2022-04-25 13:59 | NUR ---
report given to MICHELLE Brand
[2022-04-29 06:49] LABS: ISTAT HGB ART 11.9 g/dl (14.0-17.9); ISTAT Hct ART 35 %PCV (42-52); ISTAT O2 SATURATION ARTERIAL 97 % (95-98); ISTAT SOURCE BLNK
[2022-04-29 06:50] LABS: ISTAT Hct MIX 29 %PCV (42-52); ISTAT O2 SATURATION MIX VENOUS 70 % (60-80); ISTAT SOURCE BLNK
== END 2022-04-25 15:05 | disposition home or self-care (01) ==
LOC: SSTAY O 06:13
PROVIDERS: ATTEND Internal Medicine Cardiovascular Disease
DX: I25.10 Atherosclerotic heart disease of native coronary artery without angina pectoris (principal); I08.0 Rheumatic disorders of both mitral and aortic valves; I11.0 Hypertensive heart disease with heart failure; I50.32 Chronic diastolic (congestive) heart failure; E78.5 Hyperlipidemia, unspecified; E66.01 Morbid (severe) obesity due to excess calories; Z68.36 Body mass index [BMI] 36.0-36.9, adult; I27.20 Pulmonary hypertension, unspecified; E11.9 Type 2 diabetes mellitus without complications; I42.8 Other cardiomyopathies; G47.33 Obstructive sleep apnea (adult) (pediatric); G47.31 Primary central sleep apnea; I47.20 Ventricular tachycardia, unspecified; Z79.899 Other long term (current) drug therapy; Z87.891 Personal history of nicotine dependence; Z88.8 Allergy status to other drugs, medicaments and biological substances
CPT/HCPCS: 36415; 76937; 80048; 82948; 85025; 85610; 85730; 93005; 93460; 99152; 99153; C1751; C1769; C1894; J1644; J2250; J3010; J3490; J7030; Q9967; 82803; 85014; A6258; A6402; C1725

== ENCOUNTER 2022-11-05 10:46 | Emergency (ER) | payer MEDICARE, BC ==
[~2022-11-05 10:46] MED LIST changes: +ALPH600C3 PO; +BENF150C; -BUME2TAB7 PO; -BUPR-344 PO; -CALC-331 PO; +CEPH-585 PO; +CITI500C; +FERR-39 PO; +IBUP-2417; +KRIL1CAP21 PO; -MAGN400C PO; -MELA10TA2 PO; -METF-436 PO; +ROPI0.5T37 PO; +TRAZ-251 PO; +VALA100031 PO; +ZINC; +[UNRECOGNIZED DRUG - OTHER]; +[UNRECOGNIZED DRUG - OTHER]; +tumeric PO
== END 2022-11-05 13:14 | disposition left against medical advice (07) ==
LOC: ER 10:47
DX: Z00.00 Encounter for general adult medical examination without abnormal findings (principal); Z53.21 Procedure and treatment not carried out due to patient leaving prior to being seen by health care provider

== ENCOUNTER 2023-03-17 13:00 | Emergency (ER) | payer MEDICARE, BC ==
[~2023-03-17] VITALS: Ht 185.4 cm; Wt 130.9 kg
[2023-03-17 13:08] VITALS: BP 110/66; PULSE 60; TEMP 98.1; O2SAT 96
[2023-03-17] MEDS ORDERED: busPIRone 15mg tablet PO ONE (13:15)
[2023-03-17] MEDS ORDERED: ketorolac trometh inj. 60 MG/2 ML VIAL IM ONE (13:40)
[2023-03-17 13:51] VITALS: RESP 18
== END 2023-03-17 14:02 | disposition home or self-care (01) ==
LOC: ER 13:01
DX: F41.9 Anxiety disorder, unspecified (principal); E11.9 Type 2 diabetes mellitus without complications; Z88.5 Allergy status to narcotic agent; Z79.899 Other long term (current) drug therapy
CPT/HCPCS: 96372; 99283; J1885